=== PATIENT | female | born 1960 | race Caucasian/White ===

== ENCOUNTER → 2017-03-06 | Day surgery (SDC) | payer BC ==
[~2017-03-06] VITALS: Ht 160 cm; Wt 53.6 kg
[~2017-03-06] MED LIST: CHOL1000 PO; LIDOCAINE HCL 2% 2 ML VIAL (20MG/ML) ONE; MIDAZOLAM HCL 1 MG/ML 2ML VIAL ONE; MULT-513 PO; ONDANSETRON INJ 2 MG/ML 2 ML VIAL ONE; OREGCAP PO; POLY150C4 PO; PROB1TAB16 PO; PROPOFOL IV EMULSION 10 MG/ML 20 ML VIAL IV ONE; WARF6TAB PO
[2017-03-06 13:54] VITALS: Ht 160 cm; Wt 53.6 kg
[2017-03-06 14:28] VITALS: TEMP 36.4
[2017-03-06 14:35] LABS: INR 2.4 (0.9-1.1); PROTHROMBIN TIME (PATIENT) 26.8 SECONDS (9.0-12.0)
--- NOTE | 2017-03-06 15:21 | Endo History and Physical ---
History & Physical Date of Service: Mar 06, 2017. Chief Complaint: ACUTE DIARRHEA Referring Physician: DR. XU GRIER History of Present Illness for colonoscopy Past Surgical History Hx Cardiac Surgery: No Hx Internal Defibrillator: No Hx Pacemaker: No Hx Abdominal Surgery: Yes (D&C) Hx of Implantable Prosthesis: No Hx Post-Op Nausea and Vomiting: No Hx Cancer Surgery: No Hx Thoracic Surgery: No Hx Orthopedic: No Hx Urinary Tract Surgery: No Family History Colon CA, Polyp, IBD Social History Smoking Status: Never Smoker Hx Substance Use: No Hx Alcohol Use: No Allergies Coded Allergies: Iodinated Diagnostic Agents (Verified Allergy, Severe, ANAPHYLAXIS, 03/05/17 ) Moxifloxacin (Verified Allergy, Unknown, "MY HEART RACED AND I THINK IT PROVOKED A BLOOD CLOT", 03/05/17) PT REQUESTS TO NOT TAKE ANY FLUOROQUINOLONES Current Medications Reported Home Medications Medications Dose Route/Sig Max Daily Dose Days Date Category Ferrex 150 (Polysaccharide Iron Complex) 150 Mg Cap 1 Cap PO QAM 03/05/17 Reported Probiotic (Probiotic Product) 1 Tab Tab 1 Tab PO QAM 03/05/17 Reported Oil Of Oregano (Oregano) 1,500 Mg Cap 1 Cap PO QAM 03/05/17 Reported Vitamin D3 (Cholecalciferol) 1,000 Unit Tab 1 Tab PO QAM 03/05/17 Reported Coumadin (Warfarin Sodium) 6 Mg Tab 6 Mg PO QPM 03/05/17 Reported Mvi With Minerals (Multivitamins/Minerals) Tab 1 Tab PO QAM 06/07/11 Reported Vital Signs Weight (Kilograms): 53.64 Height (Feet): 5 Height (Inches): 3 Date Time Temp Pulse Resp B/P (MAP) Pulse Ox O2 Delivery O2 Flow Rate FiO2 03/06/17 14:28 36.4 65 18 141/77 (98) 99 Room Air Physical Exam General Appearance: + thin, + pertinent finding (anxious) Respiratory/Chest: Respiratory effort: no dyspnea Cardiovascular: Heart Auscultation: RRR Abdomen: Inspection & Palpation: soft Assessment and Plan Diarrhea for colonoscopy
--- NOTE | 2017-03-06 16:06 | Discharge Instructions ---
Endoscopy Patient Instructions Date / Procedure(s) Performed Mar 06, 2017. Colonoscopy Allergy Information Coded Allergies: Iodinated Diagnostic Agents (Verified Allergy, Severe, ANAPHYLAXIS, 03/05/17 ) Moxifloxacin (Verified Allergy, Unknown, "MY HEART RACED AND I THINK IT PROVOKED A BLOOD CLOT", 03/05/17) PT REQUESTS TO NOT TAKE ANY FLUOROQUINOLONES Discharge Date / Findings Mar 06, 2017. Normal colon and ileum, redundant colon Medication Instructions Stopped Medication(s): STOP ALL MEDICATIONS STOPPED COUMADIN WED Restart Stopped Medication(s): resume meds Reported Home Medications Medications Dose Route/Sig Max Daily Dose Days Date Category Ferrex 150 (Polysaccharide Iron Complex) 150 Mg Cap 1 Cap PO QAM 03/05/17 Reported Probiotic (Probiotic Product) 1 Tab Tab 1 Tab PO QAM 03/05/17 Reported Oil Of Oregano (Oregano) 1,500 Mg Cap 1 Cap PO QAM 03/05/17 Reported Vitamin D3 (Cholecalciferol) 1,000 Unit Tab 1 Tab PO QAM 03/05/17 Reported Coumadin (Warfarin Sodium) 6 Mg Tab 6 Mg PO QPM 03/05/17 Reported Mvi With Minerals (Multivitamins/Minerals) Tab 1 Tab PO QAM 06/07/11 Reported Provider Instructions Activity Restrictions - No exercising or heavy lifting for 24 hours. - Do not drink alcohol the day of the procedure. - Do not drive a car or operate machinery until the day after the procedure. - Do not make any important decisions or sign important papers in 24 hours after the procedure. Following Day: - Return to full activity which may include returning to work/school. Diet Start your diet with liquids and light foods (jello, soup, juice, toast). Then eat your usual diet if not nauseated. Treatment For Common After Affects For mild abdominal pain, bloating, or excessive gas: - Rest - Eat lightly - Lie on right side Follow-Up Information Follow-up with DR. XU GRIER as scheduled Anesthesia Information What You Should Know You have had a procedure that required some medicine to reduce anxiety and discomfort. This treatment is called moderate sedation. After receiving the treatment, you may be sleepy, but you will be able to breathe on your own. The effects of the treatment may last for several hours. Follow these instructions along with Activity/Diet recommendations noted above: * Do NOT do anything where dizziness or clumsiness would be dangerous. * Rest quietly at home today, then you can be up and about tomorrow. * Have a responsible person stay with you the rest of today. * You may have had an I.V. today. If so, you may take the dressing off later today. Recommendations Call your doctor if: * Trouble breathing * Continuous vomiting for more than 24 hours * Temperature above 101 degrees * Severe abdominal pain or bloating * Pain not relieved by pain medicine ordered * There is increased drainage or redness from any incision * A large amount of rectal bleeding greater than 2-3 tablespoons. (If you had a polyp/s removed or have hemorrhoids, a small amount of blood - from the rectum is to be expected.) * You have any unanswered questions or concerns. IN THE EVENT OF A SERIOUS EMERGENCY, GO TO THE NEAREST EMERGENCY ROOM Your discharge instructions were prepared by provider Kofi Dunlap. Patient Instructions Signature Page Jonathan Smith Patient (or Guardian) Signature/Date: I have read and understand the instructions given to me by my caregivers. Caregiver/RN/Doctor Signature/Date: The above-named patient and/or guardian has received patient instructions on this date. + Original Patient Signature Page (only) stays with chart. Please make copy for patient.
--- NOTE | 2017-03-06 16:11 | GI REPORT ---
Procedure Date: 03/06/2017 3:28 PM Procedure: Colonoscopy Indications: Clinically significant diarrhea of unexplained origin Medicines: Midazolam 2 mg IV, Zofran 4 mg IV, Propofol total dose 370 mg IV, Lidocaine 60 mg IV Complications: No immediate complications. Estimated Blood Loss: Estimated blood loss was minimal. Procedure: Pre-Anesthesia Assessment: - Prior to the procedure, a History and Physical was performed, and patient medications, allergies and sensitivities were reviewed. The patient's tolerance of previous anesthesia was reviewed. - The risks and benefits of the procedure and the sedation options and risks were discussed with the patient. All questions were answered and informed consent was obtained. After I obtained informed consent, the scope was passed under direct vision. Throughout the procedure, the patient's blood pressure, pulse, and oxygen saturations were monitored continuously. The scope was introduced through the anus and advanced to the terminal ileum. The colonoscopy was technically difficult and complex due to significant looping. Successful completion of the procedure was aided by applying abdominal pressure. The patient tolerated the procedure well. The quality of the bowel preparation was excellent. Findings: The terminal ileum appeared normal. Biopsies were taken with a cold forceps for histology. Estimated blood loss was minimal. The colon (entire examined portion) appeared normal. Biopsies for histology were taken with a cold forceps from the ascending colon, transverse colon and descending colon for evaluation of microscopic colitis. Estimated blood loss was minimal. Impression: - The examined portion of the ileum was normal. Biopsied. - The entire examined colon is normal. Biopsied. Recommendation: - Discharge patient to home (ambulatory). - Continue present medications. - Await pathology results. - Return to primary care physician PRN. Kofi Dunlap M.D. Kofi Dunlap MD 03/06/2017 4:10:44 PM This report has been signed electronically. Note Initiated On: 03/06/2017 3:28 PM I attest to the content of the Intraoperative Record and orders documented therein, exceptions below
--- NOTE | 2017-03-06 16:17 | Anesthesiology Progress Note ---
Anesthesia Post Op Note Date & Time Mar 06, 2017 at 16:17 Vital Signs Pain Intensity: 0 Vital Signs Past 12 Hours Date Time Temp Pulse Resp B/P (MAP) Pulse Ox O2 Delivery O2 Flow Rate FiO2 03/06/17 14:28 36.4 65 18 141/77 (98) 99 Room Air Notes Mental Status: alert / awake / arousable, participated in evaluation Pt Amnestic to Procedure: Yes Nausea / Vomiting: adequately controlled Pain: adequately controlled Airway Patency, RR, SpO2: stable & adequate BP & HR: stable & adequate Hydration State: stable & adequate Anesthetic Complications: no major complications apparent
[2017-03-06 16:38] VITALS: BP 154/76; PULSE 57; O2SAT 99
== END | disposition home or self-care (01) ==
LOC: C.GI 13:40
PROVIDERS: ATTEND Internal Medicine Gastroenterology
DX: K52.831 Collagenous colitis (principal); Z80.0 Family history of malignant neoplasm of digestive organs; Z83.79 Family history of other diseases of the digestive system; Z79.01 Long term (current) use of anticoagulants; Z79.899 Other long term (current) drug therapy

== ENCOUNTER → 2017-05-12 | Outpatient (CLI) | payer BC ==
[~2017-05-12] MED LIST changes: -LIDOCAINE HCL 2% 2 ML VIAL (20MG/ML) ONE; -MIDAZOLAM HCL 1 MG/ML 2ML VIAL ONE; -ONDANSETRON INJ 2 MG/ML 2 ML VIAL ONE; -PROPOFOL IV EMULSION 10 MG/ML 20 ML VIAL IV ONE
== END | disposition home or self-care (01) ==
LOC: C.LAB 11:17
PROVIDERS: ATTEND Nutritionist
DX: R53.83 Other fatigue (principal)